=== PATIENT | male | born 1965 | race Caucasian/White ===

== ENCOUNTER → 2016-02-12 | Outpatient (CLI) | payer MEDICARE, BC ==
--- NOTE | 2016-02-12 15:19 | KCIC ---
PROCEDURE Two-view chest HISTORY Bronchitis. Cough for 10 days. History of atrial fibrillation. COMPARISON July 26, 2013. FINDINGS The cardiac silhouette is within normal limits. Small electronic device is identified anterior to the sternum. No focal airspace consolidation. No pleural effusion. No pneumothorax. Mild aortic tortuosity. IMPRESSION No evidence of focal airspace consolidation. Electronically signed by: Gabriel Bowen MD (Feb 12, 2016 15:18:25)
== END | disposition home or self-care (01) ==
LOC: KCIC 12:27
PROVIDERS: ATTEND Nurse Practitioner Family
DX: J40 Bronchitis, not specified as acute or chronic (principal); Q25.46 Tortuous aortic arch; I48.91 Unspecified atrial fibrillation
CPT/HCPCS: 71020

== ENCOUNTER → 2018-05-10 | Day surgery (SDC) | payer MEDICARE ==
[~2018-05-10] MED LIST: IV RINGERS,LACTATED 1000ML 1,000 ML IV SCH; LABE300T2 PO; LIDOCAINE 1% PF 2 ML VIAL. ID PRN; LIDOCAINE 2% PF 5 ML VIAL. ONE; MYCO360T PO; NIFE60TA16 PO; ONDANSETRON PF 4 MG/2 ML VIAL. IV PRN; PRED2.5T PO; PROCHLORPERAZINE 10 MG/2 ML VIAL. IV PRN; PROPOFOL 20 ML IV ONE; TACR1CAP4 PO; fentaNYL PF VIAL 100 MCG/2 ML VIAL IV PRN
[2018-05-10 09:14] VITALS: BP 125/57
== END | disposition home or self-care (01) ==
LOC: SURG 07:22
PROVIDERS: ATTEND Internal Medicine Gastroenterology
DX: K57.30 Diverticulosis of large intestine without perforation or abscess without bleeding (principal); K64.0 First degree hemorrhoids; I10 Essential (primary) hypertension; Z88.5 Allergy status to narcotic agent; Z80.3 Family history of malignant neoplasm of breast; Z72.89 Other problems related to lifestyle; Z72.0 Tobacco use; Z79.899 Other long term (current) drug therapy; Z98.52 Vasectomy status; Z94.0 Kidney transplant status
CPT/HCPCS: 45378; J2001; J2704